=== PATIENT | male | born 1960 | race Caucasian/White ===

== ENCOUNTER 2021-09-20 18:45 | Emergency (ER) | payer SELFPAY ==
[2021-09-20] MEDS ORDERED: Ondansetron 4 MG/2 ML SDV IVPUSH ONE ×2 (19:03→20:01)
[2021-09-20] MEDS ORDERED: Sodium Chloride 0.9% 10 ML Syringe FLUSH PRN (19:03)
[2021-09-20] MEDS ORDERED: Prochlorperazine 10 MG in Sodium Chloride 0.9% 50 ML IV PRN (19:09)
--- NOTE | 2021-09-20 19:12 | EDM.PDOC ---
ED HPI GENERAL MEDICAL PROBLEM - General Stated Complaint: DIZZY LIGHT HEADED Time Seen by Provider: 09/20/21 19:09 Source of Information: Reports: Patient History Limitations: Reports: No Limitations - History of Present Illness INITIAL COMMENTS - FREE TEXT/NARRATIVE: Eduardo complains of sudden onset of diazines,nausea,and spinning sensation. He was well until 5 pm tonight.He further complains of chills alternating with sweats. No cough,no headache and he does not endorse GI symptoms. he has a h/o CAD,and Chronic back pain. - Related Data Allergies Allergy/AdvReac Type Severity Reaction Status Date / Time No Known Allergies Allergy Verified 09/20/21 19:05 Home Meds: Home Meds NK [No Known Home Meds] 09/20/21 [History] ED ROS GENERAL - Review of Systems Review Of Systems: Comprehensive ROS is negative, except as noted in HPI. ED EXAM, DIZZINESS - Physical Exam Exam: See Below Exam Limited By: No Limitations General Appearance: Alert, WD/WN, No Apparent Distress Nystagmus: worsens with head to L, reproducible Ears: Normal External Exam Nose: Normal Inspection Head Exam: Atraumatic, Normocephalic Respiratory/Chest: No Respiratory Distress, Lungs Clear Cardiovascular: Normal Peripheral Pulses #1 Interpretation EKG Date: 09/20/21 Rhythm: NSR [place]: Normal P-Wave: Present QRS: Normal ST-T: Normal Comparison: NA - No Prior EKG Course - Vital Signs Last Recorded V/S: Last Vital Signs Temp 95.9 F L 09/20/21 18:45 Pulse 50 L 09/20/21 18:45 Resp 20 09/20/21 18:45 BP 149/86 H 09/20/21 18:45 Pulse Ox 99 09/20/21 18:45 - Orders/Labs/Meds Orders: Active Orders 24 hr Category Date Time Status Head wo Cont [CT] Stat Exams 09/20/21 20:27 Taken Prochlorperazine [Compazine] 10 mg Med 09/20/21 19:09 Active Sodium Chloride 0.9% [Normal Saline] 50 ml IV Q6H Sodium Chloride 0.9% [Normal Saline] 1,000 ml Med 09/20/21 19:15 Active IV ASDIRECTED Sodium Chloride 0.9% [Saline Flush] Med 09/20/21 19:03 Active 10 ml FLUSH ASDIRECTED PRN Peripheral IV Insertion Adult [OM.PC] Routine Oth 09/20/21 19:03 Ordered EKG 12 Lead [EK] Routine Ther 09/20/21 19:00 Ordered Medication Orders Sodium Chloride (Normal Saline) 1,000 mls @ 999 mls/hr IV ASDIRECTED LANCE Last Admin: 09/20/21 19:34 Dose: 999 mls/hr Documented by: DRISS Prochlorperazine Edisylate 10 (mg/ Sodium Chloride) 52 mls @ 150 mls/hr IV Q6H PRN PRN Reason: Nausea/Vomiting Last Admin: 09/20/21 19:34 Dose: 150 mls/hr Documented by: DRISS Sodium Chloride (Sodium Chloride 0.9% 10 Ml Syringe) 10 ml FLUSH ASDIRECTED PRN PRN Reason: Keep Vein Open Last Admin: 09/20/21 19:34 Dose: 10 ml Documented by: DRISS Labs: Laboratory Tests 09/20/21 09/20/21 09/20/21 Range/Units 18:55 18:55 18:55 WBC 15.0 H (3.2-10.1) x10-3/uL RBC 5.74 (3.90-5.90) x10(6)uL Hgb 16.8 (12.9-17.7) g/dL Hct 49.9 (38.3-50.1) % MCV 86.8 (80.8-98.7) fL MCH 29.3 (27.0-33.3) pg MCHC 33.7 (28.7-35.3) g/dL RDW 13.7 (12.4-15.0) % Plt Count 208 (117-477) x10(3)uL MPV 7.8 (6.7-11.0) fL Add Manual Diff Yes Neutrophils % (Manual) 88 H (46-82) % Lymphocytes % (Manual) 6 L (13-37) % Monocytes % (Manual) 6 (4-12) % Clumped Platelets Rare Sodium 138 (135-145) mmol/L Potassium 4.3 (3.5-5.3) mmol/L Chloride 101 (100-110) mmol/L Carbon Dioxide 25 (21-32) mmol/L BUN 19 H (7-18) mg/dL Creatinine 1.4 H (0.70-1.30) mg/dL Est Cr Clr Drug Dosing 54.71 mL/min Estimated GFR (MDRD) 51 L (>60) BUN/Creatinine Ratio 13.6 (9-20) Glucose 191 H (80-116) mg/dL Calcium 8.8 (8.6-10.2) mg/dL Total Bilirubin 0.4 (0.1-1.3) mg/dL AST 22 (5-25) IU/L ALT 37 H (12-36) U/L Alkaline Phosphatase 71 (56-112) IU/L Troponin I 4.7 (4.0-60.3) pg/mL Total Protein 8.2 H (6.0-8.0) g/dL Albumin 4.3 (3.2-4.6) g/dL Globulin 3.9 g/dL Albumin/Globulin Ratio 1.1 Meds: Medications Generic Name Dose Route Start Last Admin Trade Name Freq PRN Reason Stop Dose Admin Sodium Chloride 1,000 mls @ 999 mls/hr 09/20/21 19:15 09/20/21 19:34 Normal Saline IV 999 mls/hr ASDIRECTED LANCE Administration Prochlorperazine Edisylate 10 52 mls @ 150 mls/hr 09/20/21 19:09 09/20/21 19:34 mg/ Sodium Chloride IV 150 mls/hr Q6H PRN Administration Nausea/Vomiting Sodium Chloride 10 ml 09/20/21 19:03 09/20/21 19:34 Sodium Chloride 0.9% 10 Ml Syringe FLUSH 10 ml ASDIRECTED PRN Administration Keep Vein Open Discontinued Medications Generic Name Dose Route Start Last Admin Trade Name Freq PRN Reason Stop Dose Admin Ondansetron HCl 4 mg 09/20/21 19:03 09/20/21 20:07 Ondansetron 4 Mg/2 Ml Sdv IVPUSH 09/20/21 19:04 Not Given ONETIME ONE Ondansetron HCl 4 mg 09/20/21 20:01 09/20/21 20:04 Ondansetron 4 Mg/2 Ml Sdv IVPUSH 09/20/21 20:02 4 mg ONETIME ONE Administration Departure - Departure Time of Disposition: 20:48 Disposition: Home, Self-Care 01 Clinical Impression: Labyrinthine dysfunction - Discharge Information Instructions: Eye Contusion, [id number] Forms: ED Department Discharge Additional Instructions: Activity as tolerated. Do not wear contacts until follow up with eye doctor. Tylenol or Ibuprofen as needed for pain. Follow up Thursday with eye doctor for recheck, if unable to see, follow up with NATASHA Beal. Sepsis Event Note (ED) - Evaluation Sepsis Screening Result: No Definite Risk - Focused Exam Vital Signs: Vital Signs Temp Pulse Resp BP Pulse Ox 09/20/21 18:45 95.9 F L 50 L 20 149/86 H 99 - Problem List & Annotations (1) Dizziness SNOMED Code(s): 972808615, 603282535 Code(s): R42 - DIZZINESS AND GIDDINESS Status: Acute (2) Leukocytosis SNOMED Code(s): 601102868, 683517269 Code(s): D72.829 - ELEVATED WHITE BLOOD CELL COUNT, UNSPECIFIED Status: Acute Qualifiers: Hypereosinophilic syndrome type: idiopathic - Problem List Review Problem List Initiated/Reviewed/Updated: Yes - My Orders Last 24 Hours: My Active Orders 09/20/21 19:00 EKG 12 Lead [EK] Routine 09/20/21 19:03 Sodium Chloride 0.9% [Saline Flush] 10 ml FLUSH ASDIRECTED PRN Peripheral IV Insertion Adult [OM.PC] Routine 09/20/21 19:09 Prochlorperazine [Compazine] 10 mg Sodium Chloride 0.9% [Normal Saline] 50 ml IV Q6H 09/20/21 19:15 Sodium Chloride 0.9% [Normal Saline] 1,000 ml IV ASDIRECTED 09/20/21 20:27 Head wo Cont [CT] Stat - Assessment/Plan Last 24 Hours: My Active Orders 09/20/21 19:00 EKG 12 Lead [EK] Routine 09/20/21 19:03 Sodium Chloride 0.9% [Saline Flush] 10 ml FLUSH ASDIRECTED PRN Peripheral IV Insertion Adult [OM.PC] Routine 09/20/21 19:09 Prochlorperazine [Compazine] 10 mg Sodium Chloride 0.9% [Normal Saline] 50 ml IV Q6H 09/20/21 19:15 Sodium Chloride 0.9% [Normal Saline] 1,000 ml IV ASDIRECTED 09/20/21 20:27 Head wo Cont [CT] Stat Plan: Obtained IV access,replace fluids,five IV Compazine and ordered EKG,CBC,CM,TROP all normal.I did a CT of the head which was also normal.DC home on Meclizine
[2021-09-20] MEDS ORDERED: Sodium Chloride 0.9% 1,000 ML IV SCH (19:15)
== END 2021-09-20 21:05 | disposition home or self-care (01) ==
LOC: FB.ED 18:45
DX: H83.2X9 Labyrinthine dysfunction, unspecified ear (principal); I25.10 Atherosclerotic heart disease of native coronary artery without angina pectoris
CPT/HCPCS: 36415; 70450; 80053; 84484; 85025; 93005; 96365; 96375; 99284; J0780; J2405; J7030